=== PATIENT | male | born 1930 | race Caucasian/White ===

== ENCOUNTER 2018-12-04 13:43 | Outpatient (CLI) | payer MEDICARE, OTHER | END 2018-12-04 23:59 | disposition home or self-care (01) | LOC: RAD 13:43 | PROVIDERS: ATTEND Family Medicine | DX: R13.14 Dysphagia, pharyngoesophageal phase (principal); K21.9 Gastro-esophageal reflux disease without esophagitis | CPT/HCPCS: 74230 ==

== ENCOUNTER 2020-10-12 09:33 | Outpatient (CLI) | payer MEDICARE, OTHER | END 2020-10-12 23:59 | disposition home or self-care (01) | LOC: 64 CT 09:33 | PROVIDERS: ATTEND Family Medicine | DX: K40.20 Bilateral inguinal hernia, without obstruction or gangrene, not specified as recurrent (principal); N28.1 Cyst of kidney, acquired; N40.0 Benign prostatic hyperplasia without lower urinary tract symptoms | CPT/HCPCS: 74176 ==